=== PATIENT | female | born 2000 | race Two or more races ===

== ENCOUNTER 2022-03-10 21:34 | Emergency (ER) | payer SELFPAY ==
[~2022-03-10] VITALS: Ht 157.5 cm; Wt 61.0 kg
[2022-03-10] MEDS ORDERED: ONDANSETRON 4MG ODT PO ONE (22:30)
[2022-03-10] MEDS ORDERED: ONDANSETRON HCL 4MG/2ML INJ IV ONE (23:00)
[2022-03-11 00:30] VITALS: BP 102/66
== END 2022-03-11 01:23 | disposition home or self-care (01) ==
LOC: ER 21:34
DX: F10.129 Alcohol abuse with intoxication, unspecified (principal); Y90.0 Blood alcohol level of less than 20 mg/100 ml; F32.9 Major depressive disorder, single episode, unspecified; Z87.891 Personal history of nicotine dependence
CPT/HCPCS: 82962; 96374; 99283; J2405; Q0162